=== PATIENT | female | born 1950 | race Caucasian/White ===

== ENCOUNTER → 2021-07-25 | Outpatient (CLI) | LOC: LABNPT 12:22 | PROVIDERS: ATTEND Internal Medicine | DX: Z01.89 Encounter for other specified special examinations (principal) | CPT/HCPCS: 87015; 87045; 87046; 87899 ==

== ENCOUNTER → 2021-09-27 | Outpatient (CLI) | payer MEDICAID ==
[~2021-09-27] VITALS: Ht 152.4 cm; Wt 89.8 kg
[~2021-09-27] MED LIST: ALBU8.5H2 IH; ALPR2TAB2; AMIT100T2; AMIT100T2 PO; ASPI-586 PO; ATEN-155 PO; ATEN100T88 PO; ATEN25TA PO; ATENOLOL; AZIT-21 PO; BACL10TA; BACL10TA PO; BACL20TA PO; BISO1TAB39; BISOPROLOL-HCTZ; BSP5T PO; BUTA-167; BUTA-167 PO; CEFD300C3 PO; CIPR500T5 PO; CIPR500T78 PO; CODE118S2 PO; CPR250T PO; CPR500T; CPR500T PO; CYCL10TA9 PO; CYCL5TAB PO; DCS100C PO; DIAZ10TA; DIAZ10TA PO; DIAZ2TAB2 PO; DIAZ5TAB3; DIAZ5TAB3 PO; DICY20TA PO; DICY20TA10 PO; DONE10TA41 PO; DOXY-227 PO; DOXY100C2 PO; DULO20CA PO; DULO60CA6 PO; EST.625T; EST.625T PO; EST45C VG; ESTR42.52 VG; EYE; FLT05NA16; FLUO20CA25; FURO20TA4 PO; GLIM4TAB5 PO; GLYB1.253 PO; HYDR-2890 PO; HYDR-34 PO; HYDR-3454 PO; HYDR-3720 PO; HYDR12.56 PO; HYDR12.570; HYDR1TAB86 PO; HYDR50TA3 PO; LANS30CA PO; LD5O35 TP; LEVO250T11 PO; LEVO500T69 PO; LEVO750T6 PO; LIRA0.6P3 SQ; LNS30CCR; LNS30CCR PO; LVF500T; MECL12.579 PO; MECL25TA56; MELO-198 PO; METF-399 PO; MGX400T PO; NAPR500T72; NFR150C PO; NITR-65 PO; NITR100C; NITR100C10 PO; NITR100C3 PO; NITR50CA4 PO; NYST15CR TP; OMEP-10 PO; ONDAN4ODT; ONDAN4ODT PO; OXB5T; OXYC-109 PO; OXYC-12 PO; OXYC-176; OXYC-190; OXYC1TAB3; PANT20TA18 PO; PENT100C5 PO; PHEN100T26 PO; PHEN200T27; PHEN200T27 PO; PNT40TEC PO; POLY17PO6 PO; POTA10TA10 PO; PRAV20TA3 PO; PRD20T PO; PRED20TA PO; PREG150C; PREG225C PO; PREMARIN; SCOP1PAT TD; SENN-234 PO; SERT-412 PO; SULF1TAB38 PO; TRAM-21 PO; ZIPR20CA23 PO; ZIPR20CA24 PO; ZLP10T; ZLP10T PO; [UNRECOGNIZED DRUG - CODE]; [UNRECOGNIZED DRUG - REMARK]; macrobid
== END | disposition home or self-care (01) ==
LOC: PREOP 05:37
PROVIDERS: ATTEND Surgery
DX: Z01.818 Encounter for other preprocedural examination (principal)